=== PATIENT | female | born 1970 | race Caucasian/White ===

== ENCOUNTER → 2017-03-13 | Outpatient (CLI) | payer BC | LOC: OD 14:33 | PROVIDERS: ATTEND Physician Assistant | DX: M72.2 Plantar fascial fibromatosis (principal); M77.31 Calcaneal spur, right foot ==

== ENCOUNTER 2018-02-28 09:51 | Emergency (ER) | payer BC ==
[2018-02-28] MEDS ORDERED: ASPIRIN 81 MG TABLET, CHEWABLE PO ONE (10:03)
--- NOTE | 2018-02-28 10:09 | ER Document Report ---
ED General - General Chief Complaint: Chest Pain Stated Complaint: CHEST PAIN Time Seen by Provider: 02/28/18 09:56 Notes: 47-year-old female with history of anxiety presents to the emergency department complaining of chest discomfort dizziness heart racing. The patient stated she has a history of anxiety in the past. She is trying to hold off her Celexa and has not taken it for over a week she started taking it again the last few days however she still feels anxious. 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 She began feeling dizzy felt her heart race she felt as if her face was hot and swollen and had chest discomfort. She described it as a pressure and a racing feeling of palpitations in her chest. She felt short of breath. Denies nausea denies vomiting denies diaphoresis. Denies cough swelling sore throat. TRAVEL OUTSIDE OF THE [place] IN LAST 30 DAYS: No - Related Data Allergies/Adverse Reactions: No Known Allergies Allergy (Unverified 04/17/16 10:29) Past Medical History - Social History Smoking Status: Never Smoker Family History: Reviewed & Not Pertinent - Past Medical History Cardiac Medical History: Denies: Hx Coronary Artery Disease, Hx Heart Attack, Hx Hypertension Pulmonary Medical History: Denies: Hx Asthma, Hx Bronchitis, Hx COPD, Hx Pneumonia Neurological Medical History: Denies: Hx Cerebrovascular Accident, Hx Seizures Musculoskeltal Medical History: Denies Hx Arthritis - Immunizations Hx Diphtheria, Pertussis, Tetanus Vaccination: No Review of Systems - Review of Systems Constitutional: No symptoms reported EENT: No symptoms reported Cardiovascular: No symptoms reported, Chest pain, Palpitations, Heart racing, Dyspnea, Dizziness, Lightheaded. denies: Syncope, Edema Respiratory: No symptoms reported, Short of breath. denies: Cough, Hurts to breathe Gastrointestinal: No symptoms reported, Nausea. denies: Vomiting Genitourinary: No symptoms reported Female Genitourinary: No symptoms reported Musculoskeletal: No symptoms reported Skin: No symptoms reported Hematologic/Lymphatic: No symptoms reported Neurological/Psychological: No symptoms reported -: Yes All other systems reviewed and negative Physical Exam - Vital signs Vitals: Resp Pulse Ox 16 99 02/28/18 09:59 02/28/18 09:59 - Notes Notes: GENERAL_APPEARANCE: well_nourished, alert, cooperative, anxious, eyes closed trying to success coach her breathing VITALS: reviewed, see vital signs table. HEAD: no_swelling\tenderness on the head. EYES: PERRL, EOMI, conjunctiva_clear. NOSE: no_nasal_discharge. MOUTH: (-)decreased moisture. THROAT: no_tonsilar_inflammation, no_airway_obstruction. no_lymphadenopathy NECK: supple, no_neck_tenderness, (-)thyromegaly. BACK: no_back_tenderness. CHEST_WALL: no_chest_tenderness. LUNGS: no_wheezing, no_rales, no_rhonchi, (-)accessory muscle use, good air exchange bilateral. HEART: normal_rate, normal_rhythm, normal_S1, normal_S2, (-)S3, (-)S4, no_ murmur, no_rub. ABDOMEN: normal_BS, soft, no_abd_tenderness, (-)guarding, (-)rebound, no_ organomegaly, no_abd_masses. EXTREMITIES: good pulses in all_extremities, no_swelling\tenderness in the extremities, no_edema. SKIN: warm, dry, good_color, no_rash. MENTAL_STATUS: speech_clear, oriented_X_3, anxious_affect, responds_ appropriately to questions. Course - Re-evaluation Re-evalutation: 02/28/18 10:08 Arrived to find the patient in the room with her eyes closed coaching her breathing down. She seems very anxious. The patient had stopped her Celexa over a week ago and is now restarting. She has battled anxiety for a lot of her life. The patient states she had borderline diabetes but takes no medications for it. She stated this all began this morning. They had pizza and beer for dinner last night. The patient states she is starting to feel better. Will do a cardiac workup on her however her risk for ACS is low. 02/28/18 12:52 PERC Rule for Pulmonary Embolism from [email or web address] on 02/28/2018 RESULT SUMMARY: 0 criteria No need for further workup, as <2% chance of PE. INPUTS: Age 50 > 0 = No HR 100 > 0 = No Alonso on room air <95% > 0 = No Unilateral leg swelling > 0 = No Hemoptysis > 0 = No Recent surgery or trauma > 0 = No Prior PE or DVT > 0 = No Hormone use > 0 = No 02/28/18 13:31 HEART Score for Major Cardiac Events from [email or web address] on 02/28/2018 RESULT SUMMARY: 1 points Low Score (0-3 points) Risk of MACE of 0.9-1.7%. INPUTS: History > 0 = Slightly suspicious EKG > 0 = Normal Age > 0 = <45 Risk factors > 1 = 1-2 risk factors Initial troponin > 0 = normal limit We will repeat a second troponin. Again patient is very low risk I spoke to the patient about low risk for major cardiac event of less than 2%. 02/28/18 15:56 She was observed here for over 5 hours repeat troponins are negative. Patient is completely discomfort free on my reexamination before discharge. I spoke with her about major adverse cardiac events. I spoke with her about medicine compliance and her Celexa. Patient stated she is feeling much better. Anxiety may play a role however stressed the importance of follow-up with her family doctor and if not improving or if she feels worse to return in 24 hours to be reevaluated. - Vital Signs Vital signs: Temp Pulse Resp BP Pulse Ox 98.7 F 14 106/58 L 97 02/28/18 10:35 02/28/18 13:01 02/28/18 13:01 02/28/18 13:01 - Laboratory Result Diagrams: 02/28/18 10:09 02/28/18 10:09 Laboratory results interpreted by me: 02/28/18 10:09 RDW 14.3 H - EKG Interpretation by Sc EKG shows normal: Sinus rhythm Rate: Normal Rhythm: NSR When compared to previous EKG there are: Previous EKG unavailable Discharge - Discharge Clinical Impression: Chest pain Qualifiers: Chest pain type: other chest pain Qualified Code(s): R07.89 - Other chest pain Condition: Good Disposition: HOME, SELF-CARE Instructions: Chest Pain of Unclear Cause ([facility]) Additional Instructions: If you feel that you are not improving in 24 hours return to the ER for have us reevaluate you. Otherwise follow-up with the family doctor. You are at low risk for pulmonary embolism. You are at low risk for a major adverse cardiac event. You have had multiple cardiac enzyme markers that have been negative EKG has been nonsuggestive of acute myocardial ischemia. No test is ever 100% there are always limitations please follow-up with your doctor for possible stress testing if needed also if you do not feel better in 24 hours or if you feel worse return to the ER and allow us to reevaluate you.
[2018-02-28 10:39] LABS: ABSOLUTE BASOPHILS # (AUTO) 0.1 10^3/uL (0.0-0.2); ABSOLUTE EOSINOPHILS # (AUTO) 0.1 10^3/uL (0.0-0.6); ABSOLUTE LYMPHOCYTES (AUTO) 2.2 10^3/uL (0.5-4.7); ABSOLUTE MONOCYTES (AUTO) 0.6 10^3/uL (0.1-1.4); ABSOLUTE NEUT (AUTO) 5.5 10^3/uL (1.7-8.2); BASOPHILS % (AUTO) 0.8 % (0-2); HEMATOCRIT 41.5 % (36.0-47.0); HEMOGLOBIN 13.8 g/dL (12.0-15.5); LYMPHOCYTES % (AUTO) 26.2 % (13-45); MEAN CORPUSCULAR HEMOGLOBIN 31.6 pg (27.0-33.4); MEAN CORPUSCULAR HGB CONC 33.2 g/dL (32.0-36.0); MEAN CORPUSCULAR VOLUME 95 fl (80-97); MONOCYTES % (AUTO) 7.4 % (3-13); PLATELET COUNT 373 10^3/uL (150-450); RED BLOOD COUNT 4.36 10^6/uL (3.72-5.28); RED CELL DISTRIBUTION WIDTH 14.3 % (11.5-14.0); SEGMENTED NEUTROPHILS % (AUTO) 64.6 % (42-78); TOTAL CELLS COUNTED % (AUTO) 100 %; WHITE BLOOD COUNT 8.5 10^3/uL (4.0-10.5)
--- NOTE | 2018-02-28 10:47 | RADIOLOGY REPORT (SQ) ---
EXAM DESCRIPTION: CHEST SINGLE VIEW COMPLETED DATE/TIME: 02/28/2018 10:35 am REASON FOR STUDY: cp COMPARISON: 04/17/2016 EXAM PARAMETERS: NUMBER OF VIEWS: One view. TECHNIQUE: Single frontal radiographic view of the chest acquired. RADIATION DOSE: NA LIMITATIONS: None. FINDINGS: LUNGS AND PLEURA: Minimal right basilar atelectasis. Lungs are otherwise clear. No pleur al effusion. No pneumothorax. MEDIASTINUM AND HILAR STRUCTURES: No masses. Contour normal. HEART AND VASCULAR STRUCTURES: Mild cardiomegaly, stable BONES: No acute findings. HARDWARE: None in the chest. OTHER: No other significant finding. IMPRESSION: Minimal right basilar atelectasis TECHNICAL DOCUMENTATION: JOB ID: [id number] [employer]- All Rights Reserved Reading location - IP/workstation name: [email or web address]
[2018-02-28 10:50] LABS: ALANINE AMINOTRANSFERASE 33 U/L (9-52); ALKALINE PHOSPHATASE 56 U/L (38-126); ANION GAP 12 (5-19); ASPARTATE AMINO TRANSFERASE 24 U/L (14-36); BILIRUBIN,DIRECT 0.2 mg/dL (0.0-0.4); BILIRUBIN,TOTAL 0.2 mg/dL (0.2-1.3); BLOOD UREA NITROGEN 16 mg/dL (7-20); CALCIUM 10.1 mg/dL (8.4-10.2); CARBON DIOXIDE 27 mmol/L (22-30); CHLORIDE 104 mmol/L (98-107); CREATINE KINASE 87 U/L (30-135); GLUCOSE 97 mg/dL (75-110); POTASSIUM 4.9 mmol/L (3.6-5.0); SODIUM 142.6 mmol/L (137-145); TOTAL PROTEIN 7.7 g/dL (6.3-8.2)
[2018-02-28 13:30] LABS: CREATINE KINASE MB 0.39 ng/mL (<4.55)
[2018-02-28 13:33] LABS: TROPONIN I < 0.012 ng/mL
[2018-02-28 16:15] VITALS: BP 102/63
--- NOTE | 2018-02-28 21:55 | EKG REPORT ---
SEVERITY:- NORMAL ECG - SINUS RHYTHM BORDERLINE T WAVE ABNORMALITIES : Confirmed by: Luis Fernando Mclean 28-Feb-2018 21:55:09
== END 2018-02-28 16:15 | disposition home or self-care (01) ==
LOC: ER 09:51
DX: R07.89 Other chest pain (principal); F41.9 Anxiety disorder, unspecified; R42 Dizziness and giddiness
CPT/HCPCS: 36415; 71045; 80053; 82550; 82553; 84484; 85025; 93005; 93010; 99285